=== PATIENT | female | born 1980 | race Caucasian/White ===

== ENCOUNTER 2022-09-12 11:06 | Emergency (ER) | payer OTHER ==
[2022-09-12 11:19] VITALS: TEMP 98.5
--- NOTE | 2022-09-12 12:02 | ED ---
Extremity Problem HPI - General Chief complaint: Extremity Problem,Nontraumatic Stated complaint: Poss Blood Clot in Leg Time Seen by Provider: 09/12/22 11:56 Source: patient, RN notes reviewed, old records reviewed Mode of arrival: ambulatory Limitations: no limitations - History of Present Illness Initial comments: Well-appearing 42-year-old female presents to the emergency room with complaints of bilateral lower extremity swelling and left thigh pain. Denies any injuries. She states that the left leg has significantly improved in pain without any therapeutic intervention. She states she googled her symptoms and is concerned for blood clots. She has no risk factors, no medical history of DVT/PE. No control. No family history. MD Complaint: extremity swelling (BLLE) -: week(s) (1) Location: bilateral lower extremity -: Yes myalgia Severity scale (1-10): 4 Associated Symptoms: denies other symptoms - Related Data Allergies Allergy/AdvReac Type Severity Reaction Status Date / Time No Known Allergies Allergy Verified 09/12/22 11:19 Review of Systems ROS Statement: Those systems with pertinent positive or pertinent negative responses have been documented in the HPI. ROS Other: All systems not noted in ROS Statement are negative. Past Medical History Past Medical History: No Reported History History of Any Multi-Drug Resistant Organisms: None Reported Past Surgical History: Section Past Psychological History: No Psychological Hx Reported Smoking Status: Never smoker Past Alcohol Use History: None Reported Past Drug Use History: None Reported General Exam Limitations: no limitations General appearance: alert, in no apparent distress Head exam: Present: atraumatic Eye exam: Present: normal appearance. Absent: scleral icterus, conjunctival injection Respiratory exam: Present: normal lung sounds bilaterally. Absent: respiratory distress, accessory muscle use Cardiovascular Exam: Present: regular rate, normal heart sounds GI/Abdominal exam: Present: soft Extremities exam: Present: normal capillary refill, pedal edema (1+ BLLE) Back exam: Present: full ROM. Absent: tenderness, CVA tenderness (R), CVA tende rness (L), rash noted Neurological exam: Present: alert, oriented X3, normal gait Psychiatric exam: Present: normal affect, normal mood Skin exam: Present: warm, dry, normal color. Absent: cyanosis, diaphoretic, petechiae, pallor Course Vital Signs 09/12/22 09/12/22 11:17 14:37 Temperature 98.5 F Pulse Rate 71 60 Respiratory 20 16 Rate Blood Pressure 130/83 126/84 O2 Sat by Pulse 100 100 Oximetry Medical Decision Making - Medical Decision Making Patient was given Tylenol and Motrin with pain relief. Pulses are present. Wells score for DVT shows no risk. Due to patient's concern for DVT, Labs were drawn showing d-dimer elevated at 0.74 therefore an ultrasound was performed. Ultrasound shows no evidence of DVT. Normal flow compressibility and vascular waveforms. Strict return parameters were discussed with the patient and she was directed to follow up with her primary care doctor this week. Return to the emergency room with any new or concerning symptoms. She is agreeable to this plan of care. - Lab Data Result diagrams: 09/12/22 12:38 09/12/22 12:38 Lab Results 09/12/22 09/12/22 09/12/22 Range/Units 12:38 12:38 12:38 WBC 5.4 (3.8-10.6) k/uL RBC 4.11 (3.80-5.40) m/uL Hgb 12.7 (11.4-16.0) gm/dL Hct 37.5 (34.0-46.0) % MCV 91.2 (80.0-100.0) fL MCH 31.0 (25.0-35.0) pg MCHC 34.0 (31.0-37.0) g/dL RDW 13.2 (11.5-15.5) % Plt Count 230 (150-450) k/uL MPV 9.2 Neutrophils % 66 % Lymphocytes % 22 % Monocytes % 7 % Eosinophils % 3 % Basophils % 1 % Neutrophils # 3.5 (1.3-7.7) k/uL Lymphocytes # 1.2 (1.0-4.8) k/uL Monocytes # 0.4 (0-1.0) k/uL Eosinophils # 0.1 (0-0.7) k/uL Basophils # 0.1 (0-0.2) k/uL D-Dimer 0.74 H (<0.60) mg/L FEU Sodium 138 (137-145) mmol/L Potassium 4.3 (3.5-5.1) mmol/L Chloride 107 (98-107) mmol/L Carbon Dioxide 30 (22-30) mmol/L Anion Gap 1 mmol/L BUN 10 (7-17) mg/dL Creatinine 0.69 (0.52-1.04) mg/dL Est GFR (CKD-EPI)AfAm >90 (>60 ml/min/1.73 sqM) Est GFR (CKD-EPI)NonAf >90 (>60 ml/min/1.73 sqM) Glucose 93 (74-99) mg/dL Calcium 8.3 L (8.4-10.2) mg/dL Disposition Clinical Impression: Leg pain, bilateral Disposition: HOME SELF-CARE Condition: Good Instructions (If sedation given, give patient instructions): Arthralgia (ED) Additional Instructions: Increase your fluid intake. Follow-up with your primary care doctor this week for continuation of care. Return to the emergency room with any new or concerning symptoms including difficulty breathing or chest pain. Is patient prescribed a controlled substance at d/c from ED?: No Referrals: None,Stated [Primary Care Provider] - 1-2 days Time of Disposition: 14:24
[2022-09-12] MEDS ORDERED: IBUPROFEN 600 MG TAB PO STA (12:09)
[2022-09-12] MEDS ORDERED: ACETAMINOPHEN TAB 325 MG TAB PO STA (12:09)
[2022-09-12 12:46] LABS: Basophils # (A) 0.1 k/uL (0-0.2); Basophils % (A) 1 %; Eosinophils # (A) 0.1 k/uL (0-0.7); Eosinophils % (A) 3 %; HCT 37.5 % (34.0-46.0); HGB 12.7 gm/dL (11.4-16.0); Lymphocytes # (A) 1.2 k/uL (1.0-4.8); Lymphocytes % (A) 22 %; MCV 91.2 fL (80.0-100.0); Mean Platelet Volume 9.2; Monocytes # (A) 0.4 k/uL (0-1.0); Monocytes % (A) 7 %; Neutrophils # (A) 3.5 k/uL (1.3-7.7); Neutrophils % (A) 66 %; Platelet Count 230 k/uL (150-450); RBC 4.11 m/uL (3.80-5.40); RDW 13.2 % (11.5-15.5); WBC 5.4 k/uL (3.8-10.6)
[2022-09-12 13:11] LABS: African American GFR (CKD) >90 (>60 ml/min/1.73 sqM); Anion Gap 1 mmol/L; Blood Urea Nitrogen 10 mg/dL (7-17); Calcium 8.3 mg/dL (8.4-10.2); Carbon Dioxide 30 mmol/L (22-30); Chloride 107 mmol/L (98-107); Glucose 93 mg/dL (74-99); Non-African American GFR(CKD) >90 (>60 ml/min/1.73 sqM); Potassium 4.3 mmol/L (3.5-5.1); Sodium 138 mmol/L (137-145)
--- NOTE | 2022-09-12 13:58 | US ---
EXAMINATION TYPE: US venous doppler duplex LE DATE OF EXAM: 09/12/2022 1:49 PM COMPARISON: NONE CLINICAL HISTORY: leg swelling elevated dimer. Elevated D-Dimer, leg swelling/ no known prior DVT SIDE PERFORMED: Bilateral TECHNIQUE: The lower extremity deep venous system is examined utilizing real time linear array sonog paige with graded compression, doppler sonography and color-flow sonography. VESSELS IMAGED: Common Femoral Vein Deep Femoral Vein Greater Saphenous Vein * Femoral Vein Popliteal Vein Small Saphenous Vein * Proximal Calf Veins (* superficial vessels) Right Leg: Negative for DVT Left Leg: Negative for DVT IMPRESSION: Grayscale, color doppler, spectral doppler imaging performed of the deep veins of the lo wer extremities. There is normal flow, compressibility, vascular waveforms.
[2022-09-12 14:38] VITALS: BP 126/84; PULSE 60; RESP 16
== END 2022-09-12 14:41 | disposition home or self-care (01) ==
LOC: EC 11:06
DX: M79.605 Pain in left leg (principal); M79.604 Pain in right leg
CPT/HCPCS: 36415; 80048; 85025; 85379; 93970; 99284